=== PATIENT | male | born 1990 | race Caucasian/White ===

== ENCOUNTER 2016-12-29 14:17 | Emergency (ER) | payer SELFPAY ==
[~2016-12-29] VITALS: Ht 182.9 cm; Wt 74.8 kg
[~2016-12-29 14:17] MED LIST: ACHD5005 PO; CARB100C4 PO; OXCA300T PO; TOPI100T PO
--- OUTSIDE RECORDS SUMMARY | 2016-12-29 14:24 | XMS REPORT | Continuity of Care Document ---
Author Author [facility] Organization [facility] Address Unknown Phone Unavailable Care Team Providers Care Car Packer Name Role Phone PCP Unavailable Source Comments Some departments are not documenting in the electronic medical record. If you do not see the information that you expected, contact Release of Information in the Health Information Management department at [phone] for further assistance in locating additional records.[facility] Active Allergies and Adverse Reactions Not on File Current Medications Not on file Active Problems Not on file Social History Tobacco Use Types Packs/Day Years Used Date Never Assessed Plan of Care Health Maintenance Due Date Last Done Comments Physical (Comprehensive) 1995 Exam Pertussis Vaccine 1999 Tetanus Vaccine 2005 Influenza Vaccine 06/27/2015 Results from Last 3 Months Not on file
[2016-12-29] MEDS ORDERED: OXCA600T (14:38)
--- NOTE | 2016-12-29 14:50 | ED EENT ---
History of Present Illness General Chief Complaint: Dental Problems/Pain Stated Complaint: L SIDE DENTAL ABSCESS Nursing Triage Note: States he has broken bottom left back tooth. Has seen dentisit and Dr Salazar and is supposed to have the tooth pulled sometime in the future. States he knows he has an abcess and needs antibiotics. HAving migraine and ear pain. Took antibitotics his mother had at home a while back and they helped. Has been crushing asa on it and putting orajel on it Source: patient Exam Limitations: no limitations History of Present Illness Time seen by provider: 14:50 Initial Comments 18-year-old male patient presents to the emergency department complains of left lower dental pain. Patient states he's been seen by his dentist and Dr. Salazar with plans for tooth extraction in the near future. Patient states however he is having difficulty coming up with the $800 needed for tooth extraction. Patient reports taking antibiotics prescribed for his mother approximately a month ago with improvement in symptoms. Over the last 3-4 days has noticed increased swelling and pain. Patient has been crushing aspirin and using Orajel on the tooth. Timing/Duration: gradual Location: dental Prearrival Treatment: over the counter meds Presenting Symptoms/Injuries: left lower dental pain. Modifying Factors: Worse With Other (worse with palpation and chewing. Improved with aspirin and Orajel.) Allergies and Home Medications Allergies Coded Allergies: Phenytoin Sodium Extended (Unverified Allergy, Unknown, 12/29/16) phenytoin sodium (Unverified Allergy, Unknown, 12/29/16) Home Medications Amoxicillin 500 Mg Capsule #42 1,000 MG PO TID Prescribed by: LUCI SENA on 12/29/16 1509 Naproxen 500 Mg Tablet #20 500 MG PO BID PRN PRN PAIN Prescribed by: LUCI SENA on 12/29/16 1509 Oxcarbazepine 300 Mg Tablet 300 MG PO (Reported) Oxcarbazepine 600 Mg Tablet #60 (Reported) Review of Systems Constitutional: No chills, No dizziness, No fever, No malaise Eyes: No Symptoms Reported Ears: Denies Dizziness, PainDenies Tinnitus Nose: no symptoms reported Mouth: see HPI pain swelling (swelling of the left lower gums.) Throat: denies pain, denies swelling, denies discharge, denies neck stiffness, denies hoarse, denies aphonia, denies muffled, denies painful swallowing, denies difficulty with fluids Respiratory: no symptoms reported Cardiovascular: no symptoms reported Gastrointestinal: no symptoms reported Musculoskeletal: no symptoms reported Skin: no symptoms reported Neurological: Headache All Other Systems Reviewed Negative Unless Noted: Yes (Negative excepted noted.) Past Dbtkakd-Cjsrso-Pxckkf Hx Patient Social History Alcohol Use: Denies Use Recreational Drug Use: Yes Drug of Choice: pot Smoking Status: Never a Smoker 2nd Hand Smoke Exposure: No Recent Foreign Travel: No Contact w/Someone Who Travel: No Recent Infectious Disease Expo: No Recent Hopitalizations: No Immunizations Up To Date Tetanus Booster (TDap): Unknown Surgeries HX Surgeries: Yes ("brain sx" facial reconstructions) Respiratory Hx Respiratory Disorders: No Cardiovascular Hx Cardiac Disorders: No Neurological Hx Neurological Disorders: Yes Neurological Disorders: Seizure Disorder Reproductive System Hx Reproductive Disorders: No Genitourinary Hx Genitourinary Disorders: No Gastrointestinal Hx Gastrointestinal Disorders: No Musculoskeletal Hx Musculoskeletal Disorders: No Endocrine Hx Endocrine Disorders: No HEENT HX ENT Disorders: No Cancer Hx Cancer: No Psychosocial Hx Psychiatric Problems: No Integumentary HX Skin/Integumentary Disorder: No Blood Transfusions Hx Blood Disorders: No Reviewed Nursing Assessment Reviewed/Agree w Nursing PMH: Yes Family Medical History Significant Family History: No Pertinent Family Hx Physical Exam Vital Signs Vital Sign - Last 12Hours 12/29/16 14:30 Temp 98.6 Pulse 82 Resp 18 B/P 150/107 Pulse Ox 100 General Appearance: WD/WN no apparent distress Eyes: bilateral eye EOMI, bilateral eye PERRL, bilateral eye normal inspection Ears: bilateral ear TM normal, bilateral ear auricle normal, bilateral ear canal normal Nose: normal inspection Mouth/Throat: pharynx normal dental tenderness (left lower dental tenderness.) No excessive drooling, No mandibular swelling, No maxillary swelling, No trismus , No uvula swelling, No voice changes, other (mild swelling and erythema left lower gums. Positive dental lonnie/fractured tooth left lower molar.) Neck: non-tender full range of motion supple normal inspection Cardiovascular: regular rate, rhythm no murmur Respiratory: lungs clear normal breath sounds no respiratory distress Neurologic/Psychiatric: alert normal mood/affect oriented x 3 Skin: normal color warm/dry Progress/Results/Core Measures Results/Orders My Orders Orders-LUCI SENA Ceftriaxone Injection (Rocephin Injectio (12/29/16 15:00) Tramadol Tablet (Ultram Tablet) (12/29/16 14:59) Lidocaine 1% Injection (Xylocaine 1% Inj (12/29/16 15:00) Vital Signs/I&O Vital Sign - Last 12Hours 12/29/16 14:30 Temp 98.6 Pulse 82 Resp 18 B/P 150/107 Pulse Ox 100 Blood Pressure Mean: 121 Departure Communication Progress Notes Patient seen and evaluated. Initially planned for Rocephin 1 g IM 1 dose and tramadol orally. Patient requested this examiner and for discussion of medications to be given. Patient now stating he is severely afraid of needles and would like to only do oral medication if possible. DC Rocephin. Proceed with discharge with oral amoxicillin and Naprosyn. All return precautions were discussed with the patient as described in the discharge instructions and this report. Patient voices understanding and agrees with the treatment plan. Impression Impression: Primary Impression: Dental abscess Disposition: HOME, SELF-CARE Condition: Improved Departure-Patient Inst. Decision time for Depature: 15:07 Referrals: [facility] (PCP/Family) Primary Care Physician Patient Instructions: Dental Pain (DC), Tooth Abscess (DC) Add. Discharge Instructions: All discharge instructions reviewed with patient and/or family. Voiced understanding. Medications as instructed. Tylenol Extra Strength dhav-nys-rdvknun as directed for pain. Ice packs or heating pads as needed for pain. Soft diet. Body temperature liquids. Follow-up with your dentist or Dr. Salazar for recheck and tooth extraction. Call for appointment time. Return to the emergency department for worsened pain, swelling, difficulty swallowing, difficulty breathing, fever, or any other concerns. Scripts Naproxen (Naprosyn)500 Mg [place]180 Mg PO BID PRN PAIN #20 TAB Ref 0 Prov:LUCI SENA 12/29/16 Amoxicillin 500 Mg Capsule1,000 Mg PO TID #42 CAP Ref 0 Prov:LUCI SENA 12/29/16 Work/School Note: Work Release Form Date Seen in the Emergency Department: Dec 29, 2016 Return to Work: Dec 31, 2016 Restrictions: No Restrictions LUCI SENA Dec 29, 2016 14:50
[2016-12-29] MEDS ORDERED: cefTRIAXone 1 GM (ROCEPHIN) VIAL IM ONE (15:00)
[2016-12-29] MEDS ORDERED: LIDOCAINE 1% INJ 20 ML (XYLOCAINE) VIAL INJ ONE (15:00)
[2016-12-29] MEDS ORDERED: NAPR500T PO (15:09)
[2016-12-29] MEDS ORDERED: AMOX500C2 PO (15:09)
[2016-12-29 15:30] VITALS: BP 120/70
== END 2016-12-29 15:28 | disposition home or self-care (01) ==
LOC: EDUNIT# 14:17 → ER 14:20
DX: K04.7 Periapical abscess without sinus (principal); G40.909 Epilepsy, unspecified, not intractable, without status epilepticus
CPT/HCPCS: 99282